=== PATIENT | female | born 1995 | race Caucasian/White ===

== ENCOUNTER 2021-05-03 16:11 | Emergency (ER) | payer OTHER ==
[2021-05-03 16:35] VITALS: BP 130/88; PULSE 81; TEMP 98; BMI 35.4
== END 2021-05-03 17:06 | disposition home or self-care (01) ==
LOC: JERFT 16:11
DX: G43.009 Migraine without aura, not intractable, without status migrainosus (principal)
CPT/HCPCS: 99283-25; C9803; U0003; U0005